=== PATIENT | male | born 1990 | race Caucasian/White ===

== ENCOUNTER 2020-10-27 10:03 | Emergency (ER) | payer BC ==
[~2020-10-27] VITALS: Ht 177.8 cm; Wt 68.0 kg
[2020-10-27 10:03] VITALS: BP_SYST 117
[2020-10-27] MEDS: AZITHROMYCIN 250 MG TABLET PO ONE (11:23)
[2020-10-27 11:28] VITALS: BP_SYST 117
== END 2020-10-27 11:25 | disposition home or self-care (01) ==
LOC: SED 10:03
DX: N39.0 Urinary tract infection, site not specified (principal); F17.200 Nicotine dependence, unspecified, uncomplicated; Z88.0 Allergy status to penicillin; Z88.6 Allergy status to analgesic agent
CPT/HCPCS: 99283; Q0144

== ENCOUNTER 2024-01-12 14:28 | Emergency (ER) | payer BC ==
[~2024-01-12] VITALS: Ht 177.8 cm; Wt 72.6 kg
[2024-01-12] MEDS ORDERED: MOME17SP15 NAS (15:22)
[2024-01-12 15:50] VITALS: BP_SYST 99; PULSE 58; RESP 18; TEMP 98.3; O2SAT 99
[2024-01-12] MEDS ORDERED: IBUP-1969 PO (17:08)
[2024-01-12] MEDS ORDERED: METH-776 PO (17:08)
[2024-01-12 17:50] VITALS: BP_SYST 102; PULSE 58; RESP 18; TEMP 98.3; O2SAT 99
== END 2024-01-12 17:50 | disposition home or self-care (01) ==
LOC: SED 14:28
DX: S33.8XXA Sprain of other parts of lumbar spine and pelvis, initial encounter (principal); Z88.0 Allergy status to penicillin; Z88.6 Allergy status to analgesic agent; W12.XXXA Fall on and from scaffolding, initial encounter; Y93.89 Activity, other specified; Y92.89 Other specified places as the place of occurrence of the external cause; Y99.8 Other external cause status
CPT/HCPCS: 72220; 99283